=== PATIENT | female | born 1980 | race African-American/Black ===

== ENCOUNTER 2020-11-03 21:49 | Emergency (ER) | payer SELFPAY ==
[~2020-11-03] VITALS: Ht 162.6 cm; Wt 115.2 kg
[2020-11-03] MEDS ORDERED: KETOROLAC TROMETHAMINE 30 MG/ML VIAL IM STA (22:09)
[2020-11-03] MEDS ORDERED: HYDROCODONE/APAP 5MG-325MG TAB PO ONE (22:15)
[2020-11-03] MEDS ORDERED: HYDROCODONE/APAP 5MG-325MG TAB ONE (22:22)
[2020-11-03] MEDS ORDERED: KETOROLAC TROMETHAMINE 30 MG/ML VIAL ONE (22:22)
[2020-11-03] MEDS ORDERED: NAPROSYN500 MG PO (22:36)
[2020-11-03] MEDS ORDERED: KEFLEX125 MG/5 M PO (22:36)
[2020-11-03 22:45] VITALS: BP 146/82
== END 2020-11-03 22:45 | disposition home or self-care (01) ==
LOC: FSED 22:10
DX: K08.89 Other specified disorders of teeth and supporting structures (principal)
CPT/HCPCS: 96372; 99283; J1885